=== PATIENT | female | born 1985 | race African-American/Black ===

== ENCOUNTER 2017-01-12 15:13 | Emergency (ER) | payer OTHER ==
[~2017-01-12] VITALS: Ht 160 cm; Wt 104.3 kg
[2017-01-12 15:41] VITALS: BP 104/65
== END 2017-01-12 17:49 | disposition home or self-care (01) ==
LOC: ER 15:14
DX: S86.912A Strain of unspecified muscle(s) and tendon(s) at lower leg level, left leg, initial encounter (principal); R60.9 Edema, unspecified; Z86.718 Personal history of other venous thrombosis and embolism; W19.XXXA Unspecified fall, initial encounter; Y93.89 Activity, other specified; Y92.89 Other specified places as the place of occurrence of the external cause; Y99.8 Other external cause status
CPT/HCPCS: 93971; 99284; A4606; Z7610

== ENCOUNTER 2019-01-18 15:36 | Emergency (ER) | payer OTHER ==
[~2019-01-18] VITALS: Ht 162.6 cm; Wt 104.3 kg
--- NOTE | 2019-01-18 15:59 | NUR ---
PT PRESENTED TO THE ER WITH A C/O DRAINAGE/DISCHARGE FROM WOUND. POSSIBLE SURGICAL WOUND DIHISCENCE. PT HAS AN ABD BINDER WITH ABD PAIN IN PLACE. PT HAD A MYOMECTOMY SX ON FRIDAY AT [facility]. PT WAS JUST D/C'D YESTERDAY. PT AMBULATED TO ER #4 WITH A STEADY GAIT. PT IS ON THE MONITOR AND CONTINUOUS PULSE OX. PT IS ALSO C/O A PRODUCTIVE COUGH. PT'S RESP ARE EVEN AND UNLABORED. NO C/O N/V/D.
--- NOTE | 2019-01-18 15:59 | NUR ---
Note undone in EDM - 01/18/19 at 1604 by ANMOL PT PRESENTED TO THE ER WITH A C/O DRAINAGE/DISCHARGE FROM WOUND. POSSIBLE SURGICAL WOUND DIHISCENCE. PT HAS AN ABD BINDER WITH ABD PAIN IN PLACE. PT HAD A MYOECTOMY SX ON FRIDAY AT [facility]. PT WAS JUST D/C'D YESTERDAY. PT AMBULATED TO ER #4 WITH A STEADY GAIT. PT IS ON THE MONITOR AND CONTINUOUS PULSE OX. PT IS ALSO C/O A PRODUCTIVE COUGH. PT'S RESP ARE EVEN AND UNLABORED. NO C/O N/V/D.
--- NOTE | 2019-01-18 16:00 | NUR ---
PA FOSTER AT BEDSIDE FOR EVAL
--- NOTE | 2019-01-18 16:42 | NUR ---
Patient discharged to home in stable condition. Written and verbal after care instructions given. Patient verbalizes understanding of instruction.
[2019-01-18 16:44] VITALS: BP 112/76
== END 2019-01-18 16:45 | disposition home or self-care (01) ==
LOC: ER 15:40
DX: T81.40XA Infection following a procedure, unspecified, initial encounter (principal); Z98.890 Other specified postprocedural states; Z60.2 Problems related to living alone
CPT/HCPCS: 99283; A4606; A6403

== ENCOUNTER 2019-01-29 07:50 | Emergency (ER) | payer OTHER ==
[~2019-01-29] VITALS: Ht 160 cm; Wt 96.6 kg
[2019-01-29 08:02] VITALS: BP 127/78
--- NOTE | 2019-01-29 08:08 | NUR ---
DR. GARCIA AT BEDSIDE FOR EVAL.
[2019-01-29] MEDS ORDERED: IBUPROFEN 600 MG TABLET PO ONE ×2 (08:29→08:30)
--- NOTE | 2019-01-29 08:33 | NUR ---
[employer]ES EXECUTIVE AT BEDSIDE FOR XRAY.
--- NOTE | 2019-01-29 09:28 | NUR ---
Patient discharged to home in stable condition. Written and verbal after care instructions given. Patient verbalizes understanding of instruction.
== END 2019-01-29 09:28 | disposition home or self-care (01) ==
LOC: ER 07:51
DX: J06.9 Acute upper respiratory infection, unspecified (principal); Z86.718 Personal history of other venous thrombosis and embolism; Z98.890 Other specified postprocedural states; Z60.2 Problems related to living alone
CPT/HCPCS: 71045-TC

== ENCOUNTER 2019-07-15 20:41 | Emergency (ER) | payer OTHER ==
[~2019-07-15] VITALS: Ht 162.6 cm; Wt 111.1 kg
[2019-07-15 20:59] VITALS: BP 141/67
--- NOTE | 2019-07-15 22:57 | NUR ---
RAPID STREP SWAB SENT TO LAB
== END 2019-07-15 23:44 | disposition home or self-care (01) ==
LOC: ER 20:44
DX: J02.0 Streptococcal pharyngitis (principal); Z98.890 Other specified postprocedural states; Z60.2 Problems related to living alone
CPT/HCPCS: 86403-TC; 87070-TC

== ENCOUNTER 2019-10-13 16:09 | Emergency (ER) | payer OTHER ==
[~2019-10-13] VITALS: Ht 162.6 cm; Wt 110.2 kg
[2019-10-13 16:09] VITALS: BP 149/85
--- NOTE | 2019-10-13 16:54 | NUR ---
Patient discharged to home in stable condition. Written and verbal after care instructions given. Patient verbalizes understanding of instruction.
== END 2019-10-13 16:54 | disposition home or self-care (01) ==
LOC: ER 16:09
DX: J32.0 Chronic maxillary sinusitis (principal); F12.90 Cannabis use, unspecified, uncomplicated; Z86.718 Personal history of other venous thrombosis and embolism; Z98.890 Other specified postprocedural states; Z60.2 Problems related to living alone

== ENCOUNTER 2021-10-21 14:34 | Emergency (ER) | payer OTHER ==
[~2021-10-21] VITALS: Ht 162.6 cm; Wt 98.4 kg
[2021-10-21 15:42] VITALS: BP 136/74
[2021-10-21] MEDS ORDERED: MOME17SP BNOSTRILS (17:30)
[2021-10-21] MEDS ORDERED: AMOX-430 PO (17:30)
[2021-10-21] MEDS ORDERED: LORA10TA7 PO (17:30)
--- NOTE | 2021-10-21 17:42 | NUR ---
Patient discharged to home in stable condition. Written and verbal after care instructions given. Patient verbalizes understanding of instruction.
--- NOTE | 2021-10-21 17:42 | NUR ---
COVID SWAB DONE AND SENT
--- NOTE | 2021-10-21 19:53 | NUR ---
PT COVID ANTIGEN POSITIVE; NOT ABLE TO GET IN CONTACT WITH PT. NOTIFIED OLU SEN FRIEND (PERSON TO NOTIFY)
== END 2021-10-21 17:45 | disposition home or self-care (01) ==
LOC: ER 14:39
DX: J32.9 Chronic sinusitis, unspecified (principal); U07.1 COVID-19
CPT/HCPCS: 87426; 99283; C9803

== ENCOUNTER 2025-09-19 12:11 | Emergency (ER) | payer OTHER ==
[~2025-09-19] VITALS: Ht 160 cm; Wt 92.1 kg
[~2025-09-19 12:11] MED LIST: AMOX-430 PO; LORA10TA7 PO; MOME17SP BNOSTRILS
[2025-09-19 12:47] LABS: PLATELET COUNT (AUTO) 279 K/uL (150-450); RED BLOOD CELL COUNT(AUTO) 3.70 MIL/uL (4.0-5.2); RED CELL DISTRIBUTION WIDTH 14.7 % (11.5-15.0); WHITE BLOOD COUNT (AUTO) 6.3 K/uL (4.3-11.0)
[2025-09-19 12:56] LABS: CALCIUM, SERUM 8.0 mg/dL (8.5-10.1); CREATININE 0.8 mg/dL (0.6-1.3); SODIUM SERUM 138.0 mmol/L (136-145); UREA NITROGEN, BLOOD 15.0 mg/dL (7-18)
[2025-09-19 13:12] LABS: PREGNANCY TEST URINE QUAL NEGATIVE (NEGATIVE)
[2025-09-19 13:49] VITALS: BP 126/73; TEMP 98.3; O2SAT 98
== END 2025-09-19 13:49 | disposition home or self-care (01) ==
LOC: ER 12:16
DX: D25.9 Leiomyoma of uterus, unspecified (principal); Z79.51 Long term (current) use of inhaled steroids; Z86.718 Personal history of other venous thrombosis and embolism
CPT/HCPCS: 36415; 76856-TC; 80048-TC; 84703-TC; 85025-TC